=== PATIENT | male | born 1985 | race African-American/Black ===

== ENCOUNTER 2016-07-13 21:49 | Emergency (ER) | payer MEDICAID, OTHER ==
[~2016-07-13] VITALS: Ht 188 cm; Wt 113.4 kg
[~2016-07-13 21:49] MED LIST: BACI28.43 TP; GLIP5TAB3; LISI-334; METF-620; PRED50TA PO
[2016-07-13 22:32] VITALS: BP 161/91
[2016-07-13 23:01] LABS: CALCIUM 9.8 mg/dL (8.5-10.1); CREATININE 1.3 mg/dL (0.7-1.3); GFR 76.9; POTASSIUM 4.1 mmol/L (3.5-5.1)
[2016-07-13] MEDS ORDERED: GLIP5TAB22 PO (23:10)
[2016-07-13] MEDS ORDERED: METF500T4 PO (23:10)
--- NOTE | 2016-07-13 23:11 | PHYS DOC ---
Past Medical History Past Medical History: Diabetes-Type II, Hypertension Past Surgical History: No Surgical History Alcohol Use: Occasionally Drug Use: None Adult General Chief Complaint Chief Complaint: HYPERGLYCEMIA HPI HPI Patient is a 31 year old male with DM2 who presents with hyperglycemia seeking medication refills. States he has not had diabetic medications for 3 months. He has recently obtained his medication insurance and he is seeking primary care doctor. He notes polyuria and polydipsia. He otherwise denies abdominal pain, nausea or vomiting, fever or chills, dysuria, diarrhea. No other complaints. States he was taking metformin 500 twice a day and glipizide 5 mg extended release daily. Review of Systems Review of Systems Constitutional: Denies fever or chills [] Eyes: Denies change in visual acuity, redness, or eye pain [] HENT: Denies nasal congestion or sore throat [] Respiratory: Denies cough or shortness of breath [] Cardiovascular: No additional information not addressed in HPI [] GI: Denies abdominal pain, nausea, vomiting, bloody stools or diarrhea [] : Denies dysuria or hematuria [] Musculoskeletal: Denies back pain or joint pain [] Integument: Denies rash or skin lesions [] Neurologic: Denies headache, focal weakness or sensory changes [] Endocrine: Denies polyuria or polydipsia [] Allergies Allergies Allergies Coded Allergies Type Severity Reaction Last Updated Verified No Known Drug Allergies 01/19/16 No Physical Exam Physical Exam Constitutional: Well developed, well nourished, no acute distress, non-toxic appearance. [] HENT: Normocephalic, atraumatic, bilateral external ears normal, oropharynx moist, nose normal. [] Eyes: PERRLA, EOMI, conjunctiva normal, no discharge. [] Neck: Normal range of motion, supple. [] Cardiovascular:Heart rate regular rhythm [] Lungs & Thorax: Bilateral breath sounds clear to auscultation [] Abdomen: Bowel sounds normal, soft, no tenderness. [] Skin: Warm, dry, no erythema, no rash. [] Back: Normal range of motion. [] Extremities: No tenderness, ROM intact, no edema. [] Neurologic: Alert and oriented X 3, normal motor function, normal sensory function, no focal deficits noted. [] Psychologic: Affect normal, judgement normal, mood normal. [] Current Patient Data Vital Signs Vital Signs Date Time Temp Pulse Resp B/P (MAP) Pulse Ox O2 Delivery O2 Flow Rate FiO2 07/13/16 22:32 98.3 96 15 161/91 (114) 99 Room Air 98.3 Lab Values Laboratory Tests Test 07/13/16 22:30 07/13/16 23:03 Sodium Level 137 mmol/L (136-145) Potassium Level 4.1 mmol/L (3.5-5.1) Chloride Level 98 mmol/L (98-107) Carbon Dioxide Level 31 mmol/L (21-32) Anion Gap 8 (6-14) Blood Urea Nitrogen 12 mg/dL (8-26) Creatinine 1.3 mg/dL (0.7-1.3) Estimated GFR (Cockcroft-Gault) 76.9 Glucose Level 486 mg/dL (70-99) H Calcium Level 9.8 mg/dL (8.5-10.1) Glucose (Fingerstick) 528 mg/dL (70-99) *H Laboratory Tests 07/13/16 22:30 Course & Med Decision Making Course & Med Decision Making Pertinent Labs and Imaging studies reviewed. (See chart for details) Hyperglycemia on labs. We'll restart home medications. Encouraged follow-up with his primary care doctor closely. Return precautions given. He understands and agrees with plan. Dragon Disclaimer [place] Disclaimer This electronic medical record was generated, in whole or in part, using a voice recognition dictation system. Departure Departure Impression: Primary Impression: Hyperglycemia due to type 2 diabetes mellitus Disposition: HOME, SELF-CARE Condition: STABLE Referrals: NO PCP (PCP) Patient Instructions: Type 2 Diabetes Mellitus, Adult, [id number] Additional Instructions: Take metformin and glipizide as prescribed. Follow-up with your primary care doctor. Return for any concerns. Scripts Glipizide (GLIPIZIDE ER) 5 Mg Tab.er.24 1 TAB PO DAILY, #30 TAB 0 Refills Prov: Andrea MARSHALL MD 07/13/16 Metformin Hcl (METFORMIN HCL) 500 Mg Tablet 500 MG PO BIDWMEALS for ANTI-DIABETIC for 30 Days, #60 TAB 0 Refills Prov: Andrea MARSHALL MD 07/13/16 Problem Qualifiers Primary Impression: Hyperglycemia due to type 2 diabetes mellitus Diabetes mellitus extermination supervisor insulin use: without extermination supervisor use Qualified Codes: E11.65 - Type 2 diabetes mellitus with hyperglycemia Andrea MARSHALL MD July 13, 2016 23:11
== END 2016-07-13 23:20 | disposition home or self-care (01) ==
LOC: ER 21:49
DX: E11.65 Type 2 diabetes mellitus with hyperglycemia (principal); I10 Essential (primary) hypertension
CPT/HCPCS: 36415; 80048; 82962; 99283; 99284

== ENCOUNTER 2016-08-20 20:28 | Emergency (ER) | payer OTHER ==
[~2016-08-20] VITALS: Ht 188 cm; Wt 122.5 kg
[~2016-08-20 20:28] MED LIST changes: +GLIP5TAB22 PO; +METF500T4 PO
[2016-08-20] MEDS ORDERED: DOXY100T9 PO (20:55)
[2016-08-20] MEDS ORDERED: METR500T PO (20:55)
[2016-08-20] MEDS ORDERED: AZIT500T PO (20:55)
--- NOTE | 2016-08-20 20:55 | PHYS DOC ---
Past Medical History Past Medical History: Diabetes-Type II, Hypertension Past Surgical History: No Surgical History Alcohol Use: Occasionally Drug Use: None Adult General Chief Complaint Chief Complaint: SEXUALLY TRANSMITTED DISEASE HPI HPI Patient is a 31 year old male that presents to the emergency department with complaints of burning with urination and urethral discharge. He states he notices symptoms today. He states that he did have unprotected intercourse 3 days ago. Patient denies abdominal pain or testicular pain. He has no other complaints. Review of Systems Review of Systems Constitutional: Denies fever or chills [] Eyes: Denies change in visual acuity, redness, or eye pain [] HENT: Denies nasal congestion or sore throat [] Respiratory: Denies cough or shortness of breath [] Cardiovascular: No additional information not addressed in HPI [] GI: Denies abdominal pain, nausea, vomiting, bloody stools or diarrhea [] : Dysuria without urethral discharge Musculoskeletal: Denies back pain or joint pain [] Integument: Denies rash or skin lesions [] Neurologic: Denies headache, focal weakness or sensory changes [] Endocrine: Denies polyuria or polydipsia [] Allergies Allergies Allergies Coded Allergies Type Severity Reaction Last Updated Verified No Known Drug Allergies 01/19/16 No Physical Exam Physical Exam Constitutional: Well developed, well nourished, no acute distress, non-toxic appearance. [] Neck: Normal range of motion, no tenderness, supple, no stridor. [] Cardiovascular:Heart rate regular rhythm, no murmur [] Lungs & Thorax: Bilateral breath sounds clear to auscultation [] Abdomen: Bowel sounds normal, soft, no tenderness, no masses, no pulsatile masses. [] Skin: Warm, dry, no erythema, no rash. [] : Patient declined exam EKG EKG [] Radiology/Procedures Radiology/Procedures [] Course & Med Decision Making Course & Med Decision Making Pertinent Labs and Imaging studies reviewed. (See chart for details) [] Dragon Disclaimer Dragon Disclaimer This electronic medical record was generated, in whole or in part, using a voice recognition dictation system. Departure Departure Impression: Primary Impression: Urethritis, unspecified Disposition: 01 HOME, SELF-CARE Condition: STABLE Referrals: NO PCP (PCP) Patient Instructions: Urethritis, Adult Scripts Metronidazole (FLAGYL) 500 Mg Tablet 4 TAB PO ONCE, #4 TAB Prov: ANDRE WAY APRN 08/20/16 Azithromycin (ZITHROMAX) 500 Mg Tablet 2 TAB PO ONCE, #2 TAB Prov: ANDRE WAY APRN 08/20/16 Doxycycline Hyclate (DOXYCYCLINE HYCLATE) 100 Mg Tablet. 1 TAB PO BID, #20 TAB Prov: ANDRE WAY APRN 08/20/[address] APRN Aug 20, 2016 20:55
[2016-08-20 20:56] VITALS: BP 180/88
[2016-08-20 21:00] LABS: BILIRUBIN,URINE SMALL (NEG); GLUCOSE,URINE 500 mg/dL (NEG); NITRITE,URINE NEGATIVE (NEG); PH,URINE 5.5; PROTEIN,URINE 100 mg/dL (NEG-TRACE)
[2016-08-20 21:21] LABS: BACTERIA,URINE MODERATE /HPF (0-FEW); SQUAMOUS EPITHELIAL CELL,UR FEW /LPF; WBC,URINE >40 /HPF (0-4)
== END 2016-08-20 21:08 | disposition home or self-care (01) ==
LOC: ER 20:28
DX: N34.2 Other urethritis (principal); E11.9 Type 2 diabetes mellitus without complications; I10 Essential (primary) hypertension
CPT/HCPCS: 81001; 87086; 87491; 87591; 99284

== ENCOUNTER 2019-02-05 15:27 | Emergency (ER) | payer OTHER ==
[~2019-02-05] VITALS: Ht 188 cm; Wt 117.9 kg
[~2019-02-05 15:27] MED LIST changes: +AZIT500T PO; +DOXY-96 PO; -METF-620; +METF10007; +METF500T16 PO; -METF500T4 PO; +METR500T PO
[2019-02-05] MEDS ORDERED: LISINOPRIL 10 MG TABLET PO ONE (17:15)
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
[2019-02-05 18:30] VITALS: BP 151/82
[2019-02-05] MEDS ORDERED: CYCL10TA2 PO (18:33)
[2019-02-05] MEDS ORDERED: NAPR500T8 PO (18:33)
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
== END 2019-02-05 18:49 | disposition home or self-care (01) ==
LOC: ER 15:27
DX: S13.4XXA Sprain of ligaments of cervical spine, initial encounter (principal); M54.5 Low back pain; E11.9 Type 2 diabetes mellitus without complications; I10 Essential (primary) hypertension; V49.49XA Driver injured in collision with other motor vehicles in traffic accident, initial encounter; Y93.I9 Activity, other involving external motion; Y92.488 Other paved roadways as the place of occurrence of the external cause; Y99.8 Other external cause status
CPT/HCPCS: 72040; 72100; 99284

== ENCOUNTER 2019-12-10 10:43 | Emergency (ER) | payer OTHER ==
[~2019-12-10] VITALS: Ht 188 cm; Wt 114.0 kg
[~2019-12-10 10:43] MED LIST changes: +CYCL10TA2 PO; +NAPR500T8 PO
[2019-12-10] MEDS ORDERED: metroNIDAZOLE 500 MG TABLET PO ONE (12:30)
[2019-12-10] MEDS ORDERED: AZITHROMYCIN 250 MG TABLET. PO ONE (12:30)
[2019-12-10] MEDS ORDERED: cefTRIAXone IM 250 MG VIAL IM ONE (12:30)
--- NOTE | 2019-12-10 12:41 | PHYS DOC ---
Past Medical History Past Medical History: Diabetes-Type II, Hypertension Past Surgical History: No Surgical History Smoking Status: Never Smoker Alcohol Use: Occasionally Drug Use: None General Adult EDM: Chief Complaint: SEXUALLY TRANSMITTED DISEASE HPI: HPI: Patient is a 34 year old male who presents to the ED today requesting STD treatment, patient states he had unprotected sex with a female partner who reported to him she has trichomonas. Patient denies any symptoms. Review of Systems: Review of Systems: Constitutional: Denies fever or chills. [] Musculoskeletal: Denies back pain or joint pain. [] Integument: Denies rash. [] Neurologic: Denies headache, focal weakness or sensory changes. [] Psychiatric: Denies depression or anxiety. [] Heart Score: Risk Factors: Risk Factors: DM, Current or recent (<one month) smoker, HTN, HLP, family history of CAD, obesity. Risk Scores: Score 0 - 3: 2.5% MACE over next 6 weeks - Discharge Home Score 4 - 6: 20.3% MACE over next 6 weeks - Admit for Clinical Observation Score 7 - 10: 72.7% MACE over next 6 weeks - Early Invasive Strategies Allergies: Allergies: Allergies Coded Allergies Type Severity Reaction Last Updated Verified No Known Drug Allergies 01/19/16 No Physical Exam: PE: Constitutional: Well developed, well nourished, no acute distress, non-toxic appearance. [] Abdomen: Bowel sounds normal, soft, no tenderness, no masses, no pulsatile masses. [] Skin: Warm, dry, no erythema, no rash. [] Back: No tenderness, no CVA tenderness. [] Extremities: No tenderness, no cyanosis, no clubbing, ROM intact, no edema. [] Neurologic: Alert and oriented X 3, normal motor function, normal sensory function, no focal deficits noted. [] Psychologic: Affect normal, judgement normal, mood normal. [] EKG: EKG: [] Radiology/Procedures: Radiology/Procedures: [] Course & Med Decision Making: Course & Med Decision Making Pertinent Labs and Imaging studies reviewed. (See chart for details) This is a 34-year-old male patient presenting to the ED today with STD concern. Patient was treated for STDs. Education provided. Return precautions provided. Joaquin Disclaimer: Joaquin Disclaimer: This electronic medical record was generated, in whole or in part, using a voice recognition dictation system. Departure Departure Impression: Primary Impression: Concern about STD in male without diagnosis Disposition: 01 DC HOME SELF CARE/HOMELESS Condition: STABLE Referrals: OTTO BOSTON MD (PCP) follow up in 1-2 weeks Patient Instructions: Sexually Transmitted Disease, [id number] Additional Instructions: You were treated for sexually transmitted diseases. Use protection at all times. Follow-up with your doctor in 1 to 2 weeks. We will call you in 3 to 7 days if your results are positive. Use protection at all times. Do not have sex for 1 week. Follow-up with the health department as needed DENISE COLUNGA APRN Dec 10, 2019 12:41
[2019-12-10 13:00] VITALS: BP 172/108
[2019-12-10 13:40] LABS: BILIRUBIN,URINE NEGATIVE (NEG); CLARITY,URINE CLEAR; COLOR,URINE YELLOW; NITRITE,URINE NEGATIVE (NEG); PH,URINE 5.5 (<5.0-8.0); PROTEIN,URINE NEGATIVE (NEG-TRACE); UROBILINOGEN,URINE 0.2 mg/dL (0.2 mg/dL)
[2019-12-10 13:49] LABS: BACTERIA,URINE 0 /HPF (0-FEW); RBC,URINE 0 /HPF (0-2); WBC,URINE 0 /HPF (0-4)
== END 2019-12-10 14:20 | disposition home or self-care (01) ==
LOC: ER 10:43
DX: A59.9 Trichomoniasis, unspecified (principal); E11.9 Type 2 diabetes mellitus without complications; I10 Essential (primary) hypertension; Z20.2 Contact with and (suspected) exposure to infections with a predominantly sexual mode of transmission
CPT/HCPCS: 81001; 87491; 87591; 96372; 99283; J0696